=== PATIENT | female | born 1985 | race Caucasian/White ===

== ENCOUNTER 2019-03-01 10:04 | Inpatient (IN) ==
[2019-03-01] MEDS ORDERED: OXYTOCIN 30 UNITS/500 ML BAG IV PRN (16:37)
[2019-03-01] MEDS ORDERED: miSOPROStoL 50 MCG TAB PO ONE (16:37)
[2019-03-01 17:01] LABS: Hematocrit (blood only) 37.6 % (37-47); Hemoglobin 12.4 g/dL (12.0-16.0); Mean Corpuscular Hemoglobin 31.3 pg (25-34); Mean Corpuscular Volume 94.9 fL (80-100); Mean Platelet Volume 11.6 fL (7.4-10.4); Platelet Count 218 K/uL (130-400); RDW Coefficient of Variation 13.6 % (11.5-14.5); RDW Standard Deviation 46.9 fL (36.4-46.3); Red Blood Count 3.96 M/uL (4.2-5.4); White Blood Count 7.94 K/uL (4.8-10.8)
[2019-03-01] MEDS: AMOXICILLIN 500 MG CAP PO SCH (22:00)
[2019-03-02] MEDS ORDERED: miSOPROStoL 50 MCG TAB PO ONE (04:38)
[2019-03-02] MEDS: AMOXICILLIN 500 MG CAP PO SCH ×2 (09:04→14:02)
[2019-03-02] MEDS ORDERED: OXYTOCIN 30 UNITS/500 ML BAG IV PRN (11:58)
[2019-03-02] MEDS: LACTATED RINGER'S 1,000 ML IV PRN ×3 (12:24→20:41)
[2019-03-02] MEDS ORDERED: BUPIVACAINE 0.25% 30 ML VIAL ONE (16:23)
[2019-03-02] MEDS ORDERED: ePHEDrine sulfate 50 MG/ML AMP ONE (16:23)
[2019-03-02] MEDS ORDERED: fentaNYL citrate 100 MCG/2 ML VIAL ONE (16:23)
[2019-03-02] MEDS ORDERED: fentaNYL 2MCG/ML ROPIV 1.25MG/ML 100 ML BAG EPI ONE (16:24)
--- NOTE | 2019-03-02 16:48 | Anesthesiology Consultation ---
Date of Service March 02, 2019 Assessment & Plan (1) Encounter for pre-operative examination: Chart Review Chart Review: Patient NOT seen in Pre Admission Testing and Acceptable Risk for Labor Epidural Consults Requested none ASA ASA2 Proposed Anesthesia Anesthesia Type: Labor Epidural Risk / Benefits Reviewed With: PT / POA / Parent / Guardian, Accepts Plan and Informed Consent Obtained History Height/Weight Height: 5 ft 4 in Weight: 103.873 kg Allergies Allergy/AdvReac Type Severity Reaction Status Date / Time iodine Allergy Intermediate Topical Verified 03/01/19 16:27 Itching Medications Home Medications Medication Instructions Recorded Confirmed Last Taken amoxicillin 500 mg PO TID 03/01/19 03/01/19 03/01/19 16:00 vit-iron fum-folic ac 1 tab PO DAILY 03/01/19 03/01/19 03/01/19 08:00 [ Vitamin] Active Medications Generic Name Dose Route Start Last Admin Trade Name Freq PRN Reason Stop Dose Admin Amoxicillin 500 mg 03/01/19 22:00 03/02/19 14:02 Amoxil PO 03/04/19 21:01 500 mg TID MP Administration Lactated Ringer's 1,000 mls @ 125 mls/hr 03/01/19 16:37 03/02/19 16:51 Lr IV 03/03/19 16:36 999 mls/hr .Q8H PRN Administration L&D Protocol Protocol Oxytocin 30 units in 500 mls @ 12 mls/hr 03/02/19 11:58 03/02/19 15:30 Pitocin IV 03/04/19 11:57 0.72 units/hr .Q24H PRN 12 mls/hr Labor Induction/Augmentation Titration Protocol 0.72 UNITS/HR NPO Date Last Intake of Fluids: 03/02/19 Time Last Intake of Fluids: 16:53 Date Last Intake of Solids: 03/02/19 Time Last Intake of Solids: 12:00 Past Medical History Medical History No known health problems Exercise / Class Metabolic Activity III < 4 Walking/Shop/Light housework Past Family History Family History Grandfather (Paternal) Myocardial infarction Grandfather (Maternal) Colon cancer Father Prostate cancer Father Seizures Past Surgical History Surgical History [place] teeth extracted 2009 Past Anesthesia History No Hx of Anesthesia Complications History of PONV No Hx of PONV Social History Smoking Status: Never smoker Hx Alcohol Use: No Hx Substance Use: No Review of Systems Patient denies history of abnormal bleeding or bleeding disorder. Patient denies active use of anticoagulants other than low dose aspirin. Patient denies numbness, tingling or weakness in lower extremities. Positive history of herniated lumbar disc. Physical Exam Vital Signs Last Vital Signs Temp 36.5 C 03/02/19 15:00 Pulse 94 H 03/02/19 16:42 Resp 18 03/02/19 16:00 BP 133/78 03/02/19 14:59 Pulse Ox 99 03/02/19 16:42 Constitutional not obese (Gravid uterus) ENMT Mouth: no TMJ abnormality and oral opening not small Thyromental Distance: > or= 3.5 Finger Breadths Mallampati Class: II Neck normal visual inspection; neck extension not limited Respiratory normal respiratory effort Auscultation: lungs clear to auscultation bilaterally Cardiovascular Rate/Rhythm: regular rate and regular rhythm Heart Sounds: no murmur Neurologic moves all extremities Psychiatric Orientation: alert and oriented x 3 Testing Laboratory Results 03/01/19 16:51
[2019-03-02] MEDS: ePHEDrine sulfate 50 MG/ML AMP IV PRN ×2 (18:15→18:20)
[2019-03-02] MEDS ORDERED: fentaNYL 2MCG/ML ROPIV 1.25MG/ML 100 ML BAG EPI PRN (19:38)
[2019-03-02] MEDS ORDERED: NALOXONE HCL 1 MG in SODIUM CHLORIDE 0.9% 1000ML 1,000 ML IV PRN (19:38)
[2019-03-02] MEDS ORDERED: ONDANSETRON INJ 2 MG/ML 2 ML VIAL IV PRN (19:38)
[2019-03-02] MEDS ORDERED: NALOXONE HCL 0.4 MG/1 ML VIAL/CARP IV PRN (19:38)
[2019-03-02] MEDS ORDERED: NALBUPHINE HCL INJ 10 MG/ML AMP IV PRN (19:38)
[2019-03-02] MEDS ORDERED: DiphenhydrAMINE HCL 50 MG/ML VIAL IV PRN (19:38)
[2019-03-03] MEDS ORDERED: cefOXitin 2,000 MG in DEXTROSE 5% 50 ML IV STA ×2 (02:06→02:10)
[2019-03-03] MEDS ORDERED: CITRIC ACID/SODIUM CITRATE 15 ML UDC PO ONE (02:15)
[2019-03-03] MEDS ORDERED: LACTATED RINGER'S 1,000 ML IV SCH (02:15)
[2019-03-03] MEDS ORDERED: cefOXitin 2,000 MG in DEXTROSE 5% 50 ML IV ONE (02:15)
[2019-03-03] MEDS ORDERED: LIDOCAINE/EPINEPHRINE 2% 1:200,000 20 ML SDV ONE (02:17)
[2019-03-03] MEDS ORDERED: MoRPHine SULFATE PF 1 MG/ML 10 ML AMP/VIAL ONE (03:10)
[2019-03-03] MEDS ORDERED: OXYTOCIN 10 UNITS/ML VIAL ONE (03:10)
--- NOTE | 2019-03-03 03:12 | History and Physical Report ---
DATE OF ADMISSION: 03/01/2019 CHIEF COMPLAINT: Arrest of labor, cephalopelvic disproportion. HISTORY OF PRESENT ILLNESS: The patient is a 34-year-old, 2, para 1. She states she is allergic to iodine and Betadine. Her due date for this is 03/01/2019. She had an uneventful course until about 4 or 5 days prior to delivery when she began to develop some elevated blood pressure and proteinuria. She was brought in for induction. Her previous delivery was 2013, female, 7 pounds 10 ounces, spontaneous vaginal delivery at term, 2-hour push. She was brought in and given 2 doses of p.o. Cytotec. Eventually, her cervix began to dilate, her membranes were ruptured surgically. She received epidural for pain control and went to IV Pitocin. IV Pitocin had to be turned back several times because she got a nonreassuring heart rate tracing associated with it and she pushed for over 2 hours. She was essentially unable to engage the head into the mid pelvis. It was an inlet dystocia. After over 2 hours of pushing with no significant progress with fully dilated cervix and Pitocin augmentation, suction was called secondary to cephalopelvic disproportion. PAST MEDICAL HISTORY: She has a 4-year-old girl in good health. ALLERGIES: SHE IS ALLERGIC TO IODINE AND BETADINE. PAST MEDICAL HISTORY: No medical diseases. PAST SURGICAL HISTORY: Had wisdom teeth. SOCIAL HISTORY: No smoking. No history of excessive alcohol intake. She works outside the home. FAMILY HISTORY: Mom is 54 in good health. Father 59, has prostate ____. Two sisters, 1 brother in good health. REVIEW OF SYSTEMS: HEAD: No symptoms of frequent or severe headaches. EYES: No symptoms of blurred vision, double vision. EARS: No symptoms of frequent ear infections, difficulty hearing. PHYSICAL EXAMINATION: GENERAL: Well-developed, well-nourished, 34-year-old white female, alert, oriented x3 and cooperative, and intermittent periods of distress due to active uterine contractions. EYES: Conjunctivae are pink. Sclerae white, no evidence of jaundice. EARS: Had normal light reflex bilaterally. HEART: Had regular rhythm. S1, S2 are normal. LUNGS: Clear to auscultation and percussion. ABDOMEN: Revealed term-size fetus, estimated weight was over 8-1/2 to 9 pounds. No CVA tenderness. MUSCULOSKELETAL: No calf tenderness. PELVIC: Large amount of molding, -2 to -3 station, fully dilated, and vertex. IMPRESSIONS OF THIS CASE: Suspected macrosomia, arrest of labor secondary to cephalopelvic disproportion.
[2019-03-03] MEDS ORDERED: ONDANSETRON INJ 2 MG/ML 2 ML VIAL ONE (03:30)
[2019-03-03] MEDS ORDERED: ACETAMINOPHEN 1000 MG/100 ML IV IV PRN (03:42)
[2019-03-03] MEDS ORDERED: DiphenhydrAMINE HCL 50 MG/ML VIAL IV PRN ×2 (03:42→21:42)
[2019-03-03] MEDS ORDERED: NALOXONE HCL 0.08 MG in SYRINGE 1.8 ML IV PRN (03:42)
[2019-03-03] MEDS ORDERED: NALOXONE HCL 1 MG in SODIUM CHLORIDE 0.9% 1000ML 1,000 ML IV PRN (03:42)
[2019-03-03] MEDS ORDERED: MoRPHine SULFATE PF 1 MG/ML 10 ML AMP/VIAL EPI ONE (03:42)
[2019-03-03] MEDS ORDERED: HYDROmorphone INJ 0.5 MG/0.5 ML SYR IV PRN (03:42)
[2019-03-03] MEDS ORDERED: ONDANSETRON INJ 2 MG/ML 2 ML VIAL IV PRN ×2 (03:42→21:42)
[2019-03-03] MEDS ORDERED: ePHEDrine sulfate 50 MG/ML AMP IV PRN (03:42)
[2019-03-03] MEDS ORDERED: LACTATED RINGER'S 500 ML IV PRN (03:42)
[2019-03-03] MEDS ORDERED: NALBUPHINE HCL INJ 10 MG/ML AMP IV PRN (03:42)
[2019-03-03] MEDS ORDERED: NALOXONE HCL 0.4 MG/1 ML VIAL/CARP IV PRN (03:42)
[2019-03-03] MEDS ORDERED: DC INTRASPINAL MORPHINE SCH (03:45)
[2019-03-03] MEDS ORDERED: NO NARCOTICS OR SEDATIVES SCH (03:45)
[2019-03-03] MEDS ORDERED: SODIUM CHLORIDE 0.9% 1000ML 1,000 ML IV SCH (03:45)
[2019-03-03] MEDS ORDERED: DIPHTHERIA/TETANUS/PERTUSSIS 0.5 ML SYR/VIAL IM ONE (03:47)
[2019-03-03] MEDS ORDERED: SUPERCREAM 0.870% 15 GM JAR EXT PRN (03:47)
[2019-03-03] MEDS ORDERED: HYDROCORTISONE ACETATE 25 MG SUPP PR PRN (03:47)
[2019-03-03] MEDS ORDERED: BENZOCAINE 20% AER SPR 82.5 GM CAN EXT PRN (03:47)
[2019-03-03] MEDS ORDERED: MAGNESIUM HYDROXIDE SUSP 30 ML UDC PO PRN (03:47)
[2019-03-03] MEDS ORDERED: SENNA 8.6 MG TAB PO PRN (03:47)
--- NOTE | 2019-03-03 03:47 | Post Operative Brief Note ---
Immediate Post Op Note v1 Date of Surgery March 03, 2019 Pre & Post Diagnosis Operation Date: 03/03/19 02:00 Pre-Op Diagnosis: Cephalopelvic Disproportion; Macrosomia Post-Op Diagnosis: Cephalopelvic Disproportion; Macrosomia I identified the patient and participated in the time-out.: Yes Procedure Operation Date: 03/03/19 02:00 Actual Procedures p Section in LD(Bilateral) - Tyler Sorto MD Surgeon Tyler Sorto MD Rental Representative Dr Estrada Estimated Blood Loss 650 Findings Consistent with Post-Op Diagnosis 9 lb 7 oz male Fluids 1200 ml Specimens placenta Drains Croft Catheter (Inserted prior to procedure and output monitored by anesthesia ) Anesthesia Type General/Epidural Complications none Disposition Accompanied Patient To Recovery: No Disposition: Recovery Room
--- NOTE | 2019-03-03 04:00 | Anesthesia Procedure Note ---
Date of Service March 03, 2019 Anesthesia Post Epidural Note Vital Signs Vital Signs: Temp Pulse Resp BP Pulse Ox 37.0 C 108 H 18 136/62 100 03/03/19 00:01 03/03/19 03:55 03/03/19 00:01 03/03/19 02:40 03/03/19 03:55 Pain Intensity Pelvic: Pain Intensity: 7 Notes Mental Status: alert / awake / arousable and participated in evaluation Nausea / Vomiting: adequately controlled Pain: adequately controlled Airway Patency, RR, SpO2: stable & adequate BP & HR: stable & adequate Hydration State: stable & adequate Neuraxial Anesthesia: was administered and sensory block is resolving Anesthetic Complications: no major complications apparent and Pt Satisfied with anesthetic care Epidural: Removed without complications and With tip intact
--- NOTE | 2019-03-03 04:03 | Operative Report ---
DATE OF OPERATION: 03/03/2019 PROCEDURE: Primary low segment section. INDICATIONS FOR SURGERY: Cephalopelvic disproportion. PREOPERATIVE DIAGNOSIS: Suspected macrosomia, nonreassuring heart rate tracing. POSTOPERATIVE DIAGNOSES: Suspected macrosomia, nonreassuring heart rate tracing, delivered, 9-pound 7-ounce male. SURGEON: Dr. Sorto. HAIRSPRING II INSPECTOR: Dr. Estrada. ESTIMATED BLOOD LOSS: 650 mL. ANESTHESIA: Epidural. OPERATIVE FINDINGS AND PROCEDURE: The patient was brought to the OR table, correctly identified by armband and conversation. Epidural anesthesia was topped off. She had an excellent effect with a good level. Lower abdomen was painted with alcohol-based sterilizing solution. This solution was dry, then draped in usual sterile fashion. The anesthesia level was checked and found to be excellent. Pfannenstiel incision was made and carried down to the anterior fascia by sharp dissection. Hemostasis was secured by electrocauterization. Fascia was incised transversely from underlying muscle by blunt and sharp dissection. Recti muscles were in the midline exposing the peritoneum which was carefully raised and entered. Incision was made above the vesicouterine fold. Bladder was undermined bluntly and pushed off the operative field. Lower uterine segment was exposed, scored with a knife, then entered with the scissors. Amniotic fluid was seen at this time. Incision was then extended laterally bluntly. The vanstone machine operator's hand was inserted into uterine cavity. The head was lifted through the uterine incision, and then with fundal pressure, the infant was delivered. breathed and cried spontaneously and was attended to by the flavor tank tender, Dr. Manzo who was scrubbed and present at the time of delivery. Cord was clamped and cut. Cord blood was taken. Placenta was removed manually. Uterine cavity was cleansed with a clean sponge. Uterus, tubes, and ovaries were brought out through the incision. Myometrium was approximated with continuous locking suture of chromic catgut. Then, a layer over this was placed with a heavy Vicryl and then 2 interrupted [id number] sutures used to complete the approximation. Hemostasis at this time was excellent. The bladder flap was restored with a running plain. This restored the integrity of the vesicouterine fold. There was no bleeding. The pelvis was cleansed of all blood clots and debris. Uterus, tubes, and ovaries were reinserted into the incision. The abdomen was closed anatomically. The peritoneum was closed with a mattress suture of chromic catgut. Recti muscles approximated with interrupted [id number] suture of chromic catgut. The fascia was closed with continuous interlocking suture of Vicryl on each side, tied in the midline. SubQ was approximated with a running plain. Skin edges were approximated with staple clips. The patient tolerated these procedures well and left the OR in good condition. I attest to the content of the Intraoperative Record and any orders documented therein. Any exception s are noted below.
[2019-03-03] MEDS: KETOROLAC 30 MG/ML VIAL IV PRN ×3 (04:12→21:41)
--- NOTE | 2019-03-03 04:51 | Anesthesiology Progress Note ---
Date of Service March 03, 2019 Anesthesia Post Procedure Vital Signs Vital Signs: Temp Pulse Resp BP Pulse Ox 03/03/19 04:48 89 125/75 18/19 04:45 96 H 99 18/19 04:40 95 H 98 18/19 04:38 97 H 132/75 18/19 04:35 96 H 98 18/ 04:30 105 H 98 18/ 04:28 106 H 131/77 18 04:25 108 H 99 18/ 04:20 99 H 100 18/19 04:18 86 131/73 18/ 04:15 107 H 100 18/ 04:10 101 H 100 03/03/ 04:08 106 H 118/76 03/03/ 04:05 104 H 100 18/ 04:01 102 H 126/75 03/03/19 04:00 106 H 100 18/ 03:55 108 H 100 03/03/19 02:40 113 H 136/62 03/03/19 02:38 115 H 97 18/19 02:35 117 H 142/79 H 18/19 02:33 102 H 98 18/19 02:28 111 H 96 18/19 02:25 108 H 94 18/19 02:23 111 H 96 18/19 02:18 117 H 97 18/ 02:13 113 H 96 18/19 02:08 109 H 95 18/19 02:03 116 H 99 03/03/19 01:58 133 H 100 18/19 01:54 138 H 92 18/19 01:53 132 H 95 18/19 01:50 112 H 149/69 H 18/19 01:48 125 H 94 18/19 01:43 109 H 95 18/19 01:38 105 H 99 18/19 01:35 107 H 150/74 H 18/19 01:33 118 H 100 18/19 01:28 112 H 100 18/19 01:23 112 H 99 18/19 01:21 112 H 154/73 H 18/19 01:18 131 H 98 18/19 01:13 124 H 99 12/18/19 01:08 126 H 99 03/03/19 01:03 117 H 98 03/03/19 00:58 121 H 98 03/03/19 00:53 130 H 98 03/03/19 00:47 113 H 94 03/03/19 00:42 133 H 94 03/03/19 00:39 132 H 92 03/03/19 00:37 123 H 98 03/03/19 00:35 122 H 125/58 L 03/03/19 00:32 134 H 98 03/03/19 00:27 117 H 98 03/03/19 00:26 116 H 92 03/03/19 00:22 122 H 98 03/03/19 00:21 116 H 136/68 03/03/19 00:17 118 H 98 03/03/19 00:12 128 H 100 03/03/19 00:07 112 H 97 03/03/19 00:05 117 H 127/68 03/03/19 00:02 118 H 96 03/03/19 00:01 37.0 C 18 03/02/19 23:57 121 H 99 03/02/19 23:52 137 H 97 03/02/19 23:50 127 H 133/76 03/02/19 23:47 122 H 95 03/02/19 23:42 119 H 97 03/02/19 23:37 112 H 99 03/02/19 23:32 116 H 99 03/02/19 23:27 105 H 98 03/02/19 23:22 117 H 99 03/02/19 23:20 115 H 135/77 03/02/19 23:17 114 H 97 03/02/19 23:12 118 H 99 03/02/19 23:11 36.9 C 18 03/02/19 23:07 116 H 98 03/02/19 23:06 113 H 135/75 03/02/19 23:02 113 H 97 03/02/19 23:00 22 03/02/19 22:57 120 H 98 03/02/19 22:52 141 H 100 03/02/19 22:50 116 H 134/72 03/02/19 22:47 115 H 99 03/02/19 22:42 114 H 97 03/02/19 22:37 109 H 125/74 98 03/02/19 22:32 106 H 100 03/02/19 22:30 22 03/02/19 22:27 105 H 98 03/02/19 22:22 108 H 99 03/02/19 22:20 109 H 127/66 03/02/19 22:17 108 H 100 03/02/19 22:12 114 H 100 03/02/19 22:07 108 H 99 03/02/19 22:05 97 H 136/69 03/02/19 22:02 100 H 99 03/02/19 22:00 20 03/02/19 21:57 108 H 99 03/02/19 21:52 105 H 100 03/02/19 21:50 102 H 130/60 03/02/19 21:47 105 H 100 03/02/19 21:42 106 H 100 03/02/19 21:37 105 H 100 03/02/19 21:35 106 H 137/61 03/02/19 21:32 107 H 100 03/02/19 21:30 18 03/02/19 21:27 102 H 100 03/02/19 21:22 101 H 190/74 H 100 03/02/19 21:17 105 H 100 03/02/19 21:13 20 03/02/19 21:12 124 H 99 03/02/19 21:07 103 H 98 03/02/19 21:06 98 H 132/77 03/02/19 21:02 104 H 100 03/02/19 21:00 20 03/02/19 20:57 93 H 100 03/02/19 20:52 104 H 99 03/02/19 20:50 90 134/87 03/02/19 20:47 101 H 100 03/02/19 20:42 100 H 100 03/02/19 20:37 103 H 99 03/02/19 20:35 95 H 130/70 03/02/19 20:32 102 H 99 03/02/19 20:30 18 03/02/19 20:27 94 H 99 03/02/19 20:22 89 97 03/02/19 20:20 97 H 127/70 03/02/19 20:17 88 98 03/02/19 20:12 103 H 98 03/02/19 20:07 91 H 98 03/02/19 20:05 94 H 129/76 12/17/19 20:02 97 H 99 19 20:00 16 19 19:57 96 H 100 19 19:52 89 98 19 19:50 97 H 128/71 19 19:47 88 99 1719 19:42 101 H 100 03/02/19 19:37 99 H 98 03/02/19 19:35 99 H 135/80 03/02/19 19:32 93 H 99 03/02/19 19:30 37.0 C 20 03/02/19 19:27 104 H 98 03/02/19 19:22 102 H 99 03/02/19 19:21 101 H 131/74 03/02/19 19:17 103 H 100 03/02/19 19:12 114 H 100 03/02/19 19:07 116 H 98 03/02/19 19:05 95 H 133/70 03/02/19 19:02 86 96 03/02/19 18:57 91 H 98 03/02/19 18:52 85 98 03/02/19 18:50 86 133/66 03/02/19 18:47 95 H 97 03/02/19 18:42 101 H 97 03/02/19 18:37 104 H 96 03/02/19 18:34 103 H 126/72 03/02/19 18:32 107 H 99 03/02/19 18:30 18 03/02/19 18:27 111 H 96 03/02/19 18:22 113 H 94 03/02/19 18:20 129 H 120/70 19 18:19 131 H 106/68 19 18:17 125 H 103/63 99 19 18:16 109 H 99/56 L 03/02/19 18:15 110 H 95/54 L 03/02/19 18:12 120 H 98 1719 18:07 121 H 98 19 18:04 116 H 128/73 19 18:02 107 H 132/73 97 19 18:00 109 H 128/72 17/19 17:58 104 H 133/69 17/19 17:57 101 H 98 17/19 17:56 107 H 127/82 03/02/19 17:54 96 H 140/77 03/02/19 17:52 107 H 136/79 98 03/02/19 17:50 101 H 139/99 03/02/19 17:47 105 H 99 03/02/19 17:42 100 H 99 03/02/19 17:37 97 H 99 03/02/19 17:32 105 H 99 03/02/19 17:27 96 H 99 03/02/19 17:22 97 H 99 03/02/19 17:17 96 H 100 03/02/19 17:12 98 H 100 03/02/19 17:07 90 100 03/02/19 17:02 106 H 100 03/02/19 17:00 36.7 C 20 03/02/19 16:57 90 100 03/02/19 16:53 90 130/78 03/02/19 16:52 97 H 100 03/02/19 16:47 88 100 03/02/19 16:42 94 H 99 03/02/19 16:37 93 H 99 03/02/19 16:32 92 H 99 03/02/19 16:30 20 03/02/19 16:00 18 03/02/19 15:30 18 03/02/19 15:00 36.5 C 20 03/02/19 14:59 88 133/78 03/02/19 14:55 18 03/02/19 14:34 95 H 128/84 03/02/19 14:30 20 03/02/19 13:33 98 H 124/79 03/02/19 13:30 18 03/02/19 13:02 90 20 130/87 03/02/19 12:30 18 03/02/19 12:25 86 134/74 03/02/19 11:21 100 H 130/63 03/02/19 11:19 36.7 C 18 03/02/19 09:06 87 125/85 03/02/19 07:08 36.7 C 85 18 140/88 03/02/19 06:04 36.8 C 98 H 18 129/79 03/02/19 05:00 18 Pain Intensity Pelvic: Pain Intensity: 7 Transfer of Care Handoff Completed per policy Notes Mental Status: alert / awake / arousable and participated in evaluation Nausea / Vomiting: adequately controlled Pain: adequately controlled Airway Patency, RR, SpO2: stable & adequate BP & HR: stable & adequate Hydration State: stable & adequate Neuraxial Anesthesia: was administered and sensory block is resolving Anesthetic Complications: no major complications apparent and Pt Satisfied with anesthetic care
[2019-03-03] MEDS ORDERED: OXYTOCIN 40 UNITS in LACTATED RINGER'S 1,000 ML IV SCH (07:15)
[2019-03-03] MEDS: SIMETHICONE 80 MG CHEW PO SCH ×4 (12:44→20:47)
[2019-03-03] MEDS: DOCUSATE SODIUM 100 MG CAP PO SCH ×2 (12:45→20:44)
[2019-03-03] MEDS: AMOXICILLIN 500 MG CAP PO SCH ×2 (12:45→20:44)
[2019-03-03] MEDS: FERROUS SULFATE 325 MG TAB PO SCH (12:45)
[2019-03-03] MEDS: LACTATED RINGER'S 1,000 ML IV SCH ×4 (12:46→15:29)
[2019-03-03] MEDS: PRENATAL VITAMIN 1 TAB PO SCH (12:50)
[2019-03-03] MEDS ORDERED: MEPERIDINE HCL 50 MG/ML CARP IV PRN (21:42)
[2019-03-03] MEDS ORDERED: PROMETHAZINE HCL 25 MG in SODIUM CHLORIDE 0.9% 50 ML IV PRN (21:42)
[2019-03-03] MEDS ORDERED: ZOLPIDEM TARTRATE 5 MG TAB PO PRN (21:42)
[2019-03-03] MEDS ORDERED: KETOROLAC 30 MG/ML VIAL IV PRN (21:42)
[2019-03-03] MEDS ORDERED: Nursing to Pharmacy Communication ONE (22:36)
[2019-03-03] MEDS ORDERED: SODIUM CHLORIDE 0.65% NA SOLN 45 ML (OCEAN) PRN (22:38)
[2019-03-04] MEDS: OXYCODONE/ACETAMINOPHEN 5mg/325mg TAB PO PRN ×5 (04:55→21:22)
[2019-03-04] MEDS: IBUPROFEN 600 MG TAB PO PRN ×5 (04:55→21:22)
[2019-03-04 06:42] LABS: Basophils # (auto) 0.01 K/uL (0-0.2); Basophils % (auto) 0.1 %; Eosinophils # (auto) 0.19 K/uL (0-0.5); Eosinophils % (auto) 1.5 %; Hemoglobin 10.5 g/dL (12.0-16.0); Immature Granulocytes # (auto) 0.05 K/uL (0.00-0.02); Immature Granulocytes % (auto) 0.4 %; Lymphocytes # (auto) 1.84 K/uL (1.2-3.4); Lymphocytes % (auto) 14.9 %; Mean Corpuscular Hgb Conc 32.8 g/dL (32-36); Mean Corpuscular Volume 94.4 fL (80-100); Mean Platelet Volume 11.4 fL (7.4-10.4); Monocytes # (auto) 1.54 K/uL (0.11-0.59); Monocytes % (auto) 12.5 %; Neutrophils % (auto) 70.6 %; Nucleated RBC # (auto) 0.02 K/uL (0-0); Nucleated RBC % (auto) 0.1 %; Platelet Count 181 K/uL (130-400); RDW Coefficient of Variation 13.7 % (11.5-14.5); RDW Standard Deviation 47.3 fL (36.4-46.3); Red Blood Count 3.39 M/uL (4.2-5.4); White Blood Count 12.33 K/uL (4.8-10.8)
[2019-03-04] MEDS: FERROUS SULFATE 325 MG TAB PO SCH (08:15)
[2019-03-04] MEDS: PRENATAL VITAMIN 1 TAB PO SCH (08:15)
[2019-03-04] MEDS: DOCUSATE SODIUM 100 MG CAP PO SCH ×2 (08:15→21:21)
[2019-03-04] MEDS: SIMETHICONE 80 MG CHEW PO SCH ×4 (08:15→21:21)
--- NOTE | 2019-03-04 11:20 | Obstetrical Progress Note ---
Date of Service March 04, 2019 Physical Exam Physical Exam: abdomen soft and non tender bowel sounds present bandage removed incision is clean and dry passing flatus no calf tenderness ambulating well vaginal bleeding scant hgb 10.5 Results & Data Vital Signs (Past 12 Hours) Vital Signs Temp Pulse Resp BP Pulse Ox 03/04/19 08:00 36.6 C 86 16 122/80 96 03/04/19 04:40 36.6 C 91 H 20 128/82 97
[2019-03-04] MEDS: AMOXICILLIN 500 MG CAP PO SCH ×2 (14:53→21:22)
[2019-03-04] MEDS ORDERED: bisacodyL 5 MG TABEC PO SCH (20:00)
[2019-03-05] MEDS: OXYCODONE/ACETAMINOPHEN 5mg/325mg TAB PO PRN ×5 (01:17→22:15)
[2019-03-05] MEDS: IBUPROFEN 600 MG TAB PO PRN ×5 (01:17→22:15)
[2019-03-05] MEDS ORDERED: bisacodyL 10 MG SUPP PR PRN (03:47)
[2019-03-05 07:09] LABS: Hematocrit (blood only) 31.4 % (37-47); Hemoglobin 10.2 g/dL (12.0-16.0)
[2019-03-05] MEDS: FERROUS SULFATE 325 MG TAB PO SCH (08:06)
[2019-03-05] MEDS: SIMETHICONE 80 MG CHEW PO SCH ×4 (08:06→19:58)
[2019-03-05] MEDS: PRENATAL VITAMIN 1 TAB PO SCH (08:06)
[2019-03-05] MEDS: DOCUSATE SODIUM 100 MG CAP PO SCH ×2 (08:06→19:58)
--- NOTE | 2019-03-05 09:41 | Obstetrical Progress Note ---
Date of Service March 05, 2019 Physical Exam Physical Exam: abdomen soft and non tender incision is clean and dry no calf tenderness ambulating well vaginal bleeding scant hgb 10.2 Results & Data Vital Signs (Past 12 Hours) Vital Signs Temp Pulse Resp BP Pulse Ox 03/04/19 23:20 36.7 C 88 18 131/87 98
[2019-03-06] MEDS: IBUPROFEN 600 MG TAB PO PRN ×3 (03:39→11:47)
[2019-03-06] MEDS: OXYCODONE/ACETAMINOPHEN 5mg/325mg TAB PO PRN ×3 (03:40→11:48)
[2019-03-06] MEDS: SIMETHICONE 80 MG CHEW PO SCH (07:48)
[2019-03-06] MEDS: DOCUSATE SODIUM 100 MG CAP PO SCH (07:48)
[2019-03-06] MEDS: FERROUS SULFATE 325 MG TAB PO SCH (07:48)
[2019-03-06] MEDS: PRENATAL VITAMIN 1 TAB PO SCH (07:48)
--- NOTE | 2019-03-06 09:50 | Obstetrical Progress Note ---
Date of Service March 06, 2019 Physical Exam Physical Exam: abdomen soft and non tender passing flatus incision is clean and dry vaginal bleeding scant hgb 10.2 no calf tenderness ambulating well Results & Data Vital Signs (Past 12 Hours) Vital Signs Temp Pulse Resp BP Pulse Ox 03/06/19 08:00 36.7 C 78 18 112/74 97 03/05/19 23:00 36.7 C 86 16 134/92 98
--- NOTE | 2019-03-06 10:25 | Discharge Summary ---
The patient was brought in labor. She eventually had epidural, membranes were ruptured. She went to full dilatation and she pushed for over 3 hours. She was unable to engage the head into the mid pelvis despite being fully dilated and pushing for over 3 hours. Her preoperative hemoglobin was 12.4, hematocrit postoperatively was 10.2. After 3 hours of pushing, she was diagnosed with cephalopelvic disproportion, underwent primary low segment section. She delivered a live infant, which was essentially 2 pounds heavier than her previous infant which she had delivered vaginally. Postoperatively, she did well. Her bowel sounds returned within 24 hours. Her hemoglobin went from 12.4 to 10.2. At the time of discharge, she was ambulating well, eating well and her pain was well controlled with a combination of Percocet and Motrin. She was told to return to the office for removal of sutures and to call if she had a temperature over 100 or if she had any heavy vaginal bleeding.
== END 2019-03-06 13:05 | disposition home or self-care (01) | DRG 788 ==
LOC: 4S1 16:07 → 4S2 03-03 06:45